=== PATIENT | female | born 1955 | race Caucasian/White ===

== ENCOUNTER → 2017-06-20 | Outpatient (CLI) | payer OTHER | END | disposition home or self-care (01) | LOC: CFH 13:45 | PROVIDERS: ATTEND Internal Medicine | DX: Z12.31 Encounter for screening mammogram for malignant neoplasm of breast (principal); Z13.820 Encounter for screening for osteoporosis; M81.0 Age-related osteoporosis without current pathological fracture; M85.88 Other specified disorders of bone density and structure, other site; M25.9 Joint disorder, unspecified; I10 Essential (primary) hypertension; Z82.49 Family history of ischemic heart disease and other diseases of the circulatory system | CPT/HCPCS: 77080; 77067 ==

== ENCOUNTER → 2019-11-20 | Outpatient (CLI) | payer MEDICARE, OTHER | END | disposition home or self-care (01) | LOC: STAR 13:10 | PROVIDERS: ATTEND Anesthesiology | DX: Z01.89 Encounter for other specified special examinations (principal); R79.1 Abnormal coagulation profile | CPT/HCPCS: 93005 ==

== ENCOUNTER → 2020-05-13 | Outpatient (CLI) | payer MEDICARE, OTHER ==
[2020-05-13 08:44] LABS: BASOPHILS % (AUTO) 1 % (0-1); EOSINOPHILS % (AUTO) 2 % (1-7); LYMPHOCYTES % (AUTO) 17 % (22-44); MEAN CORPUSCULAR HEMOGLOBIN 28.9 pg (27.0-34.8); MEAN PLATELET VOLUME 8.3 fL (7.4-10.4); MONOCYTES % (AUTO) 7 % (2-9); NEUTROPHILS % (AUTO) 74 % (42-75); PLATELET COUNT 196 x10^3/uL (130-400); RED BLOOD COUNT 4.66 x10^6/uL (3.82-5.3); RED CELL DISTRIBUTION WIDTH 13.4 % (9.6-15.2)
[2020-05-13 08:47] LABS: MD NO
[2020-05-13 08:49] LABS: ALANINE AMINOTRANSFERASE 28 U/L (12-78); ALBUMIN 3.8 g/dL (3.4-5.0); ANION GAP 3 mmol/L (5-15); CHLORIDE 110 mmol/L (98-107); CHOLESTEROL, TOTAL 155 mg/dL (140-239); CREATININE 0.87 mg/dL (0.55-1.02)
[2020-05-13 09:00] LABS: ALKALINE PHOSPHATASE 63 U/L (45-117); BILIRUBIN,TOTAL 0.7 mg/dL (0.2-1.0); HDL CHOL % 49 % (28-40); HDL CHOLESTEROL (DIRECT) 76 mg/dL (40-60); LDL CHOLESTEROL,CALCULATED 68 mg/dL (54-169); LDL/HDL RATIO 0.9 (0.5-3.0); TOTAL PROTEIN 7.2 g/dL (6.4-8.2); TRIGLYCERIDES 55 mg/dL (50-200); VLDL CHOLESTEROL 11 mg/dL (0-25)
== END | disposition home or self-care (01) ==
LOC: LAB 08:21
PROVIDERS: ATTEND Internal Medicine
DX: Z12.11 Encounter for screening for malignant neoplasm of colon (principal); Z12.4 Encounter for screening for malignant neoplasm of cervix; Z82.49 Family history of ischemic heart disease and other diseases of the circulatory system; Z23 Encounter for immunization; I10 Essential (primary) hypertension; I25.10 Atherosclerotic heart disease of native coronary artery without angina pectoris; E55.9 Vitamin D deficiency, unspecified; M25.9 Joint disorder, unspecified; E78.1 Pure hyperglyceridemia
CPT/HCPCS: 36415; 80053; 80061; 82306; 82652; 84443; 85025

== ENCOUNTER → 2020-12-17 | Outpatient (CLI) | payer MEDICARE, OTHER ==
[2020-12-17 09:44] LABS: CALCIUM 9.5 mg/dL (8.5-10.1)
[2020-12-17 09:55] LABS: ALANINE AMINOTRANSFERASE 22 U/L (12-78); ALKALINE PHOSPHATASE 53 U/L (45-117); BILIRUBIN,TOTAL 0.7 mg/dL (0.2-1.0); CHOL/HDL RATIO 3.8; CHOLESTEROL, TOTAL 237 mg/dL (140-239); HDL CHOL % 27 % (28-40); HDL CHOLESTEROL (DIRECT) 63 mg/dL (40-60); LDL CHOLESTEROL,CALCULATED 150 mg/dL (54-169); LDL/HDL RATIO 2.4 (0.5-3.0); TOTAL PROTEIN 7.3 g/dL (6.4-8.2); TRIGLYCERIDES 118 mg/dL (50-200); VLDL CHOLESTEROL 24 mg/dL (0-25)
[2020-12-17 10:16] LABS: ANION GAP 6 mmol/L (5-15); CHLORIDE 108 mmol/L (98-107)
== END | disposition home or self-care (01) ==
LOC: LAB 09:03
PROVIDERS: ATTEND Internal Medicine
DX: Z12.11 Encounter for screening for malignant neoplasm of colon (principal); Z12.4 Encounter for screening for malignant neoplasm of cervix; Z23 Encounter for immunization; I10 Essential (primary) hypertension; E78.5 Hyperlipidemia, unspecified; R00.2 Palpitations; I25.10 Atherosclerotic heart disease of native coronary artery without angina pectoris; M25.9 Joint disorder, unspecified; E55.9 Vitamin D deficiency, unspecified; Z82.49 Family history of ischemic heart disease and other diseases of the circulatory system
CPT/HCPCS: 36415; 80053; 80061